=== PATIENT | male | born 1985 | race Caucasian/White ===

== ENCOUNTER 2023-07-17 15:34 | Emergency (ER) | payer OTHER ==
[~2023-07-17] VITALS: Ht 175.2 cm; Wt 86.2 kg
[~2023-07-17 15:34] MED LIST: BACTRIM DS 8001 TA1 PO; CEPHALEXIN500 M1 PO; CHLORHEXIDINE G10 M1 PO; CLINDAMYCIN150 MG PO; DOXYCYCLINE100 MG; KEFLEX500 MG PO; MEDROL DOSEPAK4 MG PO; MOTRIN800 MG PO; NAPROSYN500 MG PO; NORCO 325 MG-51 TAB PO; PEN-VK500 MG PO; PERIDEX 480 ML480 ML PO; SUBOXONE 8 MG-21 TA2 SL; TOBRADEX 0.1%-0.5 ML OPH; VIBRAMYCIN100 MG PO; VICODIN 500 MG-1 TAB PO
[2023-07-17] MEDS ORDERED: Ketorolac Tromethamine 30 MG/ML VIAL IM ONE (16:35)
[2023-07-17] MEDS ORDERED: Tdap Vaccine 0.5 ML SYR (Adult Vaccine) IM ONE (16:35)
[2023-07-17 16:50] LABS: BASO % 0.7 % (0.0-1.0); EOS # 0.2 10*3/uL (0.0-0.4); EOS % 3.2 % (1.0-4.0); LYMPH # 1.8 10*3/uL (1.3-4.4); MEAN CELL VOLUME 105.3 fl (80.0-94.0); MEAN CORPUSCULAR HGB 37.3 pg (27.0-31.0); MEAN CORPUSCULAR HGB CONC 35.5 g/dl (33.0-37.0); MEAN PLATELET VOLUME 9.9 fl (9.6-12.3); MONO # 0.5 10*3/uL (0.1-1.0); MONO % 8.1 % (3.0-9.0); NEUT # 3.1 10*3/uL (2.3-7.9); NEUT % 55.8 % (47.0-73.0); PLATELET COUNT AUTOMATED 119 10*3/uL (130-400); RED BLOOD COUNT 3.99 10*6/uL (4.50-5.90); RED CELL DISTRI WIDTH 11.9 % (0-14.5); WHITE BLOOD COUNT 5.6 10*3/uL (4.8-10.8)
[2023-07-17 17:06] LABS: BUN 11 mg/dl (9-23); CHLORIDE 110 mmol/L (98-107); POTASSIUM 4.3 mmol/L (3.4-5.1)
[2023-07-17] MEDS ORDERED: CIPRO500 MG PO (17:31)
[2023-07-17] MEDS ORDERED: CEPHALEXIN500 M1 PO (17:31)
== END 2023-07-17 17:36 | disposition home or self-care (01) ==
LOC: ED 15:34
PROVIDERS: Nurse Practitioner Family
DX: S91.332A Puncture wound without foreign body, left foot, initial encounter (principal); J45.909 Unspecified asthma, uncomplicated; Z98.890 Other specified postprocedural states; W22.8XXA Striking against or struck by other objects, initial encounter; Y93.89 Activity, other specified; Y92.89 Other specified places as the place of occurrence of the external cause; Y99.8 Other external cause status

== ENCOUNTER 2024-08-20 01:22 | Emergency (ER) | payer OTHER ==
[~2024-08-20] VITALS: Ht 175.2 cm; Wt 81.6 kg
[~2024-08-20 01:22] MED LIST changes: +CIPRO500 MG PO
[2024-08-20] MEDS ORDERED: Acetaminophen/Hydrocodone 5 MG/325 MG TABLET PO ONE (01:55)
[2024-08-20] MEDS ORDERED: Amoxicillin/Clavulanate Pota 875 MG TAB PO ONE (01:55)
[2024-08-20] MEDS ORDERED: Ondansetron Hydrochloride 4 MG TAB SL ONE (01:55)
[2024-08-20] MEDS ORDERED: AMOX-CLAV 875-1 EACH PO (01:57)
== END 2024-08-20 02:15 | disposition home or self-care (01) ==
LOC: ED 01:22
DX: S81.852A Open bite, left lower leg, initial encounter (principal); L03.116 Cellulitis of left lower limb; J45.909 Unspecified asthma, uncomplicated; Z79.899 Other long term (current) drug therapy; Z98.890 Other specified postprocedural states; W54.0XXA Bitten by dog, initial encounter; Y93.89 Activity, other specified; Y92.89 Other specified places as the place of occurrence of the external cause; Y99.8 Other external cause status